=== PATIENT | male | born 1975 | race Caucasian/White ===

== ENCOUNTER 2025-05-15 22:46 | Emergency (ER) | payer OTHER ==
[~2025-05-15] VITALS: Ht 165.1 cm; Wt 86.4 kg
[2025-05-15 22:53] VITALS: TEMP 99; O2SAT 100
[2025-05-16 00:22] LABS: PLATELET COUNT (AUTO) 242 K/uL (150-450); RED BLOOD CELL COUNT(AUTO) 4.82 MIL/uL (4.50-5.90); RED CELL DISTRIBUTION WIDTH 14.4 % (11.5-14.5); WHITE BLOOD COUNT (AUTO) 6.3 K/uL (4.5-11.0)
[2025-05-16] MEDS: CEPHALEXIN MONOHYDRATE 500 MG CAPSULE PO ONE (00:22)
[2025-05-16] MEDS: BACITRACIN 28 GM OINTMENT TP ONE (00:22)
[2025-05-16] MEDS: PERTUSS(ACELL),DIPH,TET/PF 0.5 ML SYRINGE [ADULT] IM. ONE (00:26)
[2025-05-16 00:31] LABS: CALCIUM, TOTAL 8.8 mg/dL (8.8-10.5); CREATININE 0.90 mg/dL (0.60-1.30); GLOMERULAR FILTR. RATE CALC > 60 mL/min (>60); GLUCOSE,RANDOM 108 mg/dL (70-110); SODIUM SERUM 141 mmol/L (136-145); UREA NITROGEN, BLOOD 17 mg/dL (7-18)
[2025-05-16 00:42] LABS: LACTIC ACID 1.1 mmol/L (0.4-2.0)
[2025-05-16 00:57] VITALS: BP 113/66; PULSE 61; RESP 16
== END 2025-05-16 02:06 ==
LOC: EMS 22:50
DX: S90.811A Abrasion, right foot, initial encounter (principal); M25.561 Pain in right knee; W19.XXXA Unspecified fall, initial encounter; Y93.89 Activity, other specified; Y92.89 Other specified places as the place of occurrence of the external cause; Y99.8 Other external cause status
CPT/HCPCS: 80048; 83605; 85025; 90471; 90715; 99284